=== PATIENT | female | born 1965 ===

== ENCOUNTER 2016-04-30 10:53 | Day surgery (SDC) | payer BC ==
[2016-04-30] MEDS ORDERED: Dextrose 5%-Lactated Ringers 1,000 ML IV SCH (11:15)
[2016-04-30] MEDS ORDERED: Glycopyrrolate 0.2 MG/ML 2 ML SYRINGE IVPUSH ONE (11:45)
[2016-04-30] MEDS ORDERED: fentaNYL 100 MCG/2 ML SDV ONE (12:12)
[2016-04-30] MEDS ORDERED: Propofol 200 MG/20 ML SDV ONE (12:12)
[2016-04-30] MEDS ORDERED: Midazolam 1 MG/ML 2 ML SDV ONE (12:12)
[2016-04-30 14:32] VITALS: BP 124/72
[2016-04-30] MEDS ORDERED: Ibuprofen 400 MG Tab PO ONE (14:55)
--- NOTE | 2016-05-06 21:25 | OR ---
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 OPERATIVE PROCEDURES: Upper GI endoscopy with biopsies of stomach for CLOtest. ANESTHESIA: IV sedation. INDICATION FOR PROCEDURE: This is a 51-year-old female status post Rivas-en-Y gastric bypass in 2002. She initially did well with this and over recent years has had progressive problems with weight regain. We planned to proceed with upper GI endoscopy with biopsies and/or dilation as indicated. Potential risks including bleeding and perforation were discussed, and the patient wishes to proceed. DETAILS OF PROCEDURE: The patient was taken to the operating room and placed in a left lateral decubitus position. 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 The findings included normal hypopharynx, larynx, upper esophageal sphincter, and esophageal body; the EG junction was likewise unremarkable. Within the gastric pouch, there was a wide open gastrojejunostomy, which was otherwise uncomplicated. The visualized portion of the Rivas limb was likewise unremarkable. There was a well-defined gastrogastric fistula, which easily moved the scope into the bypassed portion of the stomach. That had some mild redness in the antrum, otherwise the remaining bypassed portion of the stomach was unremarkable. Pyloric channel and duodenum to the junction of the third and fourth portions were likewise unremarkable. At this point, biopsies were obtained from the antrum and sent for CLOtest for H. pylori. Minimal bleeding from the biopsy sites was seen, and the procedure then concluded. 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 The plan will be to contact her insurance carrier to obtain prior authorization for the revision of procedure. Felix Chambers MD /[id number]
== END 2016-04-30 15:48 | disposition home or self-care (01) ==
LOC: JP.SDS 10:53
PROVIDERS: ATTEND Surgery
DX: K31.6 Fistula of stomach and duodenum (principal); E66.01 Morbid (severe) obesity due to excess calories; Z98.84 Bariatric surgery status
CPT/HCPCS: 43239; 87081; A9270; J2250; J2704; J3010